=== PATIENT | female | born 2000 | race Caucasian/White ===

== ENCOUNTER 2024-10-30 20:59 | Emergency (ER) | payer SELFPAY ==
[~2024-10-30] VITALS: Ht 170.2 cm; Wt 55.0 kg
[2024-10-30 21:22] VITALS: O2SAT 99
[2024-10-30 23:23] LABS: CLARITY URINE CLEAR (CLEAR); COLOR URINE YELLOW (YELLOW); GLUCOSE URINE NEGATIVE (NEGATIVE); KETONES URINE TRACE (NEGATIVE); LEUKOCYTE ESTERASE URINE 2+ (NEGATIVE); NITRITE URINE NEGATIVE (NEGATIVE); OCCULT BLOOD URINE NEGATIVE (NEGATIVE); PH URINE 5.5 (4.5-8.0); PROTEIN URINE NEGATIVE (NEGATIVE); SPECIFIC GRAVITY URINE 1.031 (1.005-1.030); UROBILINOGEN URINE 0.2 E.U./dL (0.2-1.0)
[2024-10-30 23:35] LABS: UCG SCREEN NEGATIVE
[2024-10-30 23:36] LABS: UCG KIT EXPIRATION DATE 01/03/2027; UCG KIT LOT# 958452
[2024-10-31 00:32] LABS: SQUAMOUS EPITHELIAL CELL URINE 2+ /lpf (RARE/1+)
[2024-10-31 00:33] LABS: BACTERIA URINE TRACE; RBC URINE NONE SEEN /hpf (0-2)
[2024-10-31] MEDS ORDERED: ACETAMINOPHEN 325MG TABLET PO ONE (00:45)
[2024-10-31 01:47] LABS: BASOPHILS % 0.5 % (0.0-2.0); EOSINOPHILS % 3.9 % (0.0-5.0); HEMATOCRIT. 37.7 % (36.0-48.0); HEMOGLOBIN. 12.4 g/dL (12.0-16.0); LYMPHOCYTES % 40.9 % (20.0-50.0); MEAN PLATELET VOLUME 8.9 fl (7.4-10.4); MONOCYTES % 5.3 % (2.0-8.0); NEUTROPHILS % 49.4 % (40.0-76.0); PLATELET 183 x1000/uL (130-400); RED BLOOD CELL COUNT 4.25 mill/uL (4.2-5.4); RED CELL DISTRIBUTION WIDTH 14.8 % (11.6-14.6)
[2024-10-31 01:57] LABS: CREATININE 0.8 mg/dL (0.6-1.0); UREA NITROGEN BLOOD 20 mg/dL (9-23)
[2024-10-31 01:59] LABS: ASPARTATE AMINOTRANSFERASE 15 IU/L (<34); BILIRUBIN DIRECT < 0.1 mg/dL (<=3.0); BILIRUBIN TOTAL 0.3 mg/dL (0.1-1.0); PROTEIN TOTAL 7.0 g/dL (6.0-8.3)
[2024-10-31] MEDS: CEFTRIAXONE SODIUM 500MG VIAL IM ONE (03:31)
[2024-10-31] MEDS: ACETAMINOPHEN 325MG TABLET PO SCH (03:32)
[2024-10-31] MEDS: LIDOCAINE HCL 1% 20ML VIAL INFIL ONE (03:32)
[2024-10-31] MEDS ORDERED: DOXY-461 MT (06:03)
[2024-10-31] MEDS ORDERED: FLUC100T MT (06:03)
[2024-10-31] MEDS: DOXYCYCLINE HYCLATE 100MG CAPSULE PO SCH (06:10)
[2024-10-31 06:13] VITALS: BP 90/51; PULSE 66; RESP 18; TEMP 36.9; O2SAT 100
[2024-11-02 04:07] LABS: CHLAMYDIA TRACHOMATIS NAA Negative (Negative); NEISSERIA GONORRHOEAE NAA Negative (Negative)
== END 2024-10-31 06:15 | disposition home or self-care (01) ==
LOC: ER 20:59
DX: B37.9 Candidiasis, unspecified (principal)
CPT/HCPCS: 87491; 87591 ×3; 81003; 81025; 99285; 80076; 80048; 83690; 85025; 87210; 36415; 74176; 76830; 76856; 96372; J0696; J2003; Z7610